=== PATIENT | male | born 1965 | race Caucasian/White ===

== ENCOUNTER 2017-09-05 22:39 | Emergency (ER) | payer OTHER ==
[2017-09-06 00:03] VITALS: BP 148/83
== END 2017-09-06 00:03 | disposition home or self-care (01) ==
LOC: ED 22:39
DX: F10.129 Alcohol abuse with intoxication, unspecified (principal); E11.65 Type 2 diabetes mellitus with hyperglycemia; I10 Essential (primary) hypertension

== ENCOUNTER 2018-04-11 14:58 | Inpatient (IN) | payer OTHER ==
[~2018-04-11] VITALS: Ht 172.7 cm; Wt 69.0 kg
[2018-04-11 16:28] LABS: BASOPHIL % 1.1 % (0-2)
[2018-04-11 16:30] LABS: PLATELET COUNT 416 x10^3mcL (130-400); RED CELL DISTRIBUTION WIDTH 20.1 % (11.5-14.5)
[2018-04-11 16:33] LABS: CALCIUM 7.7 mg/dL (8.5-10.1); CHLORIDE SERUM 103 mmol/L (98-107); CREATININE SERUM 0.7 mg/dL (0.7-1.3); GFR1 > 60 mL/min; GLUCOSE SERUM 150 mg/dL (74-106); POTASSIUM SERUM 3.7 mmol/L (3.5-5.1); SODIUM SERUM 139 mmol/L (136-145)
[2018-04-11 16:37] LABS: ALKALINE PHOSPHATASE 158 U/L (46-116); ALT/SGPT 17 U/L (16-63); AST/SGOT 57 U/L (15-37); BILIRUBIN TOTAL 1.6 mg/dL (0.20-1.00); LIPASE 95 IU/L (73-393); TOTAL PROTEIN, SERUM 6.9 g/dL (6.4-8.2)
[2018-04-11 16:40] LABS: ALBUMIN 1.8 g/dL (3.4-5.0)
[2018-04-11 16:56] LABS: UA SPECIFIC GRAVITY >=1.030 (1.005-1.035); microscopic required? YES; urine erythrocyte NEGATIVE (NEGATIVE)
[2018-04-11] MEDS ORDERED: FUROSEMIDE20 MG PO (17:33)
[2018-04-11 19:24] VITALS: BP 133/89
[2018-04-11 20:03] LABS: T3 TOTAL 0.75 ng/mL
[2018-04-11 20:05] LABS: FREE T4 1.51 ng/dL (0.76-1.46); FREE THYROXINE INDEX 2.6 ug/dL (1.4-4.5)
[2018-04-11 20:16] LABS: AMPHETAMINE QUAL UR NONE DETECTED (See below)
[2018-04-11 20:52] LABS: CHOLESTEROL/HDL RATIO 8.9; MAGNESIUM 1.5 mg/dL (1.8-2.4); PHOSPHOROUS 3.9 mg/dL (2.5-4.9)
[2018-04-12] VITALS (11 sets, daily range): BP systolic 109–141; BP diastolic 69–92
[2018-04-12 07:31] LABS: BASOPHIL % 0.7 % (0-2); PLATELET COUNT 361 x10^3mcL (130-400)
[2018-04-12 07:32] LABS: RED CELL DISTRIBUTION WIDTH 20.4 % (11.5-14.5)
[2018-04-12 07:33] LABS: rbc morphology (normal/abnorm) ABNORMAL (NORMAL)
[2018-04-12 07:47] LABS: CALCIUM 8.1 mg/dL (8.5-10.1); CARBON DIOXIDE 31.2 mmol/L (21-32); CHLORIDE SERUM 102 mmol/L (98-107); CREATININE SERUM 0.7 mg/dL (0.7-1.3); GFR1 > 60 mL/min; GLUCOSE SERUM 182 mg/dL (74-106); MAGNESIUM 1.9 mg/dL (1.8-2.4); PHOSPHOROUS 4.4 mg/dL (2.5-4.9); POTASSIUM SERUM 3.4 mmol/L (3.5-5.1); SODIUM SERUM 141 mmol/L (136-145)
[2018-04-12 16:58] LABS: APPEARANCE FLUID CLOUDY; COLOR FLUID RED; SOURCE FLUID ASCITES
[2018-04-12 17:34] LABS: LYMPHOCYTE FLUID 60 %; MONOCYTE FLUID 10 %; RBC FLUID 5395.6 /cumm; WBC FLUID 20 /cumm
[2018-04-13 05:38] VITALS: BP 128/79
[2018-04-13 06:31] LABS: BASOPHIL % 0.7 % (0-2); PLATELET COUNT 258 x10^3mcL (130-400)
[2018-04-13 06:42] LABS: CARBON DIOXIDE 30.5 mmol/L (21-32); CHLORIDE SERUM 104 mmol/L (98-107); CREATININE SERUM 0.8 mg/dL (0.7-1.3); GFR1 > 60 mL/min; GLUCOSE SERUM 154 mg/dL (74-106); POTASSIUM SERUM 3.2 mmol/L (3.5-5.1); SODIUM SERUM 141 mmol/L (136-145)
[2018-04-13 07:21] LABS: RED CELL DISTRIBUTION WIDTH 20.3 % (11.5-14.5)
[2018-04-13 08:45] VITALS: BP 103/67
[2018-04-13 12:44] VITALS: BP 123/79
[2018-04-13 16:28] VITALS: BP 110/74
[2018-04-13 20:38] VITALS: BP 99/66
[2018-04-13 21:45] VITALS: BP 107/68
[2018-04-14 05:45] VITALS: BP 111/72
[2018-04-14 08:50] VITALS: BP 119/76
[2018-04-14 11:47] LABS: BASOPHIL % 0.5 % (0-2); PLATELET COUNT 277 x10^3mcL (130-400); RED CELL DISTRIBUTION WIDTH 20.4 % (11.5-14.5)
[2018-04-14 12:16] VITALS: BP 129/85
[2018-04-14 12:33] LABS: CALCIUM 7.8 mg/dL (8.5-10.1); CARBON DIOXIDE 31.4 mmol/L (21-32); CHLORIDE SERUM 104 mmol/L (98-107); CREATININE SERUM 0.7 mg/dL (0.7-1.3); GFR1 > 60 mL/min; GLUCOSE SERUM 139 mg/dL (74-106); POTASSIUM SERUM 3.9 mmol/L (3.5-5.1); SODIUM SERUM 141 mmol/L (136-145)
[2018-04-14 17:23] VITALS: BP 108/69
[2018-04-14 20:54] VITALS: BP 112/73
[2018-04-15 05:31] VITALS: BP 116/77
[2018-04-15 06:50] LABS: BASOPHIL % 0.9 % (0-2); PLATELET COUNT 225 x10^3mcL (130-400)
[2018-04-15 07:00] LABS: CALCIUM 8.1 mg/dL (8.5-10.1); CARBON DIOXIDE 29.9 mmol/L (21-32); CHLORIDE SERUM 105 mmol/L (98-107); CREATININE SERUM 0.8 mg/dL (0.7-1.3); GFR1 > 60 mL/min; GLUCOSE SERUM 141 mg/dL (74-106); POTASSIUM SERUM 4.1 mmol/L (3.5-5.1); SODIUM SERUM 140 mmol/L (136-145)
[2018-04-15 07:16] LABS: RED CELL DISTRIBUTION WIDTH 20.2 % (11.5-14.5)
[2018-04-15 09:12] VITALS: BP 107/66
[2018-04-15 12:11] VITALS: BP 107/66
[2018-04-15 14:01] VITALS: BP 87/57
[2018-04-15 17:21] VITALS: BP 113/65
[2018-04-15 20:16] VITALS: BP 100/72
[2018-04-16 05:22] VITALS: BP 119/84
[2018-04-16 07:17] LABS: BASOPHIL % 0.8 % (0-2); PLATELET COUNT 276 x10^3mcL (130-400)
[2018-04-16 07:24] LABS: RED CELL DISTRIBUTION WIDTH 20.7 % (11.5-14.5)
[2018-04-16 07:28] LABS: CALCIUM 8.5 mg/dL (8.5-10.1); CARBON DIOXIDE 29.7 mmol/L (21-32); CHLORIDE SERUM 103 mmol/L (98-107); CREATININE SERUM 0.7 mg/dL (0.7-1.3); GFR1 > 60 mL/min; GLUCOSE SERUM 146 mg/dL (74-106); MAGNESIUM 1.4 mg/dL (1.8-2.4); POTASSIUM SERUM 4.5 mmol/L (3.5-5.1); SODIUM SERUM 138 mmol/L (136-145)
[2018-04-16 09:57] VITALS: BP 112/80
[2018-04-16 13:32] VITALS: BP 132/72
[2018-04-16 17:51] VITALS: BP 130/85
[2018-04-16 21:15] VITALS: BP 112/74
[2018-04-17 05:56] VITALS: BP 103/67
[2018-04-17 06:57] LABS: BASOPHIL % 0.6 % (0-2); PLATELET COUNT 265 x10^3mcL (130-400); RED CELL DISTRIBUTION WIDTH 21.1 % (11.5-14.5)
[2018-04-17 06:58] LABS: rbc morphology (normal/abnorm) ABNORMAL (NORMAL)
[2018-04-17 07:16] LABS: CALCIUM 8.3 mg/dL (8.5-10.1); CHLORIDE SERUM 102 mmol/L (98-107); CREATININE SERUM 0.8 mg/dL (0.7-1.3); GFR1 > 60 mL/min; GLUCOSE SERUM 139 mg/dL (74-106); MAGNESIUM 1.7 mg/dL (1.8-2.4); PHOSPHOROUS 4.4 mg/dL (2.5-4.9); POTASSIUM SERUM 4.1 mmol/L (3.5-5.1); SODIUM SERUM 137 mmol/L (136-145)
[2018-04-17 08:17] VITALS: BP 101/59
[2018-04-17 08:35] LABS: RED BLOOD CELLS 3.27 M/mm3 (4.52-5.90)
[2018-04-17 09:01] LABS: IRON 18 ug/dL (65-170)
[2018-04-17 09:02] LABS: TOTAL IRON BINDING CAPACITY 127 ug/dL (250-450)
[2018-04-17 12:35] VITALS: BP 126/75
[2018-04-17 15:59] VITALS: BP 111/68
[2018-04-17 22:04] VITALS: BP 128/87
[2018-04-18 05:35] VITALS: BP 117/70
[2018-04-18 08:00] LABS: BASOPHIL % 1.2 % (0-2); PLATELET COUNT 297 x10^3mcL (130-400)
[2018-04-18 08:04] LABS: RED CELL DISTRIBUTION WIDTH 21.1 % (11.5-14.5)
[2018-04-18 08:32] VITALS: BP 117/70
[2018-04-18 08:44] VITALS: BP 114/78
[2018-04-18 08:52] LABS: CALCIUM 8.2 mg/dL (8.5-10.1); CARBON DIOXIDE 27.3 mmol/L (21-32); CHLORIDE SERUM 101 mmol/L (98-107); CREATININE SERUM 0.8 mg/dL (0.7-1.3); GFR1 > 60 mL/min; GLUCOSE SERUM 132 mg/dL (74-106); MAGNESIUM 1.6 mg/dL (1.8-2.4); PHOSPHOROUS 4.1 mg/dL (2.5-4.9); POTASSIUM SERUM 4.1 mmol/L (3.5-5.1); SODIUM SERUM 135 mmol/L (136-145)
[2018-04-18 12:53] VITALS: BP 129/74
[2018-04-18 17:03] VITALS: BP 110/72
[2018-04-18 20:33] LABS: APPEARANCE FLUID HAZY; SOURCE FLUID PARACENTESIS
[2018-04-18 20:34] LABS: COLOR FLUID YELLOW
[2018-04-18 20:36] LABS: LYMPHOCYTE FLUID 40 %; MONOCYTE FLUID 5 %; RBC FLUID 5133 /cumm; WBC FLUID 325 /cumm
[2018-04-18 21:31] VITALS: BP 112/70
[2018-04-19 05:59] VITALS: BP 108/70
[2018-04-19 07:48] LABS: BASOPHIL % 0.9 % (0-2); PLATELET COUNT 250 x10^3mcL (130-400)
[2018-04-19 07:53] LABS: RED CELL DISTRIBUTION WIDTH 21.6 % (11.5-14.5); rbc morphology (normal/abnorm) ABNORMAL (NORMAL)
[2018-04-19 08:08] LABS: ALKALINE PHOSPHATASE 104 U/L (46-116); ALT/SGPT 8 U/L (16-63); AST/SGOT 41 U/L (15-37); BILIRUBIN DIRECT 1.15 mg/dL (0.0-0.2); BILIRUBIN TOTAL 2.2 mg/dL (0.20-1.00); CALCIUM 7.4 mg/dL (8.5-10.1); CARBON DIOXIDE 27.1 mmol/L (21-32); CHLORIDE SERUM 101 mmol/L (98-107); CREATININE SERUM 0.7 mg/dL (0.7-1.3); GFR1 > 60 mL/min; GLUCOSE SERUM 108 mg/dL (74-106); MAGNESIUM 1.5 mg/dL (1.8-2.4); PHOSPHOROUS 3.4 mg/dL (2.5-4.9); POTASSIUM SERUM 3.8 mmol/L (3.5-5.1); SODIUM SERUM 135 mmol/L (136-145)
[2018-04-19 08:33] LABS: ALBUMIN 1.7 g/dL (3.4-5.0); TOTAL PROTEIN, SERUM 5.5 g/dL (6.4-8.2)
[2018-04-19 11:08] VITALS: BP 122/76
[2018-04-19 15:01] VITALS: BP 118/76
[2018-04-19 18:48] VITALS: BP 116/75
[2018-04-19 21:00] VITALS: BP 108/71
[2018-04-20 05:25] VITALS: BP 106/70
[2018-04-20 07:15] LABS: BASOPHIL % 0.7 % (0-2); PLATELET COUNT 257 x10^3mcL (130-400)
[2018-04-20 07:17] LABS: RED CELL DISTRIBUTION WIDTH 21.7 % (11.5-14.5)
[2018-04-20 07:18] LABS: CALCIUM 8.3 mg/dL (8.5-10.1); CARBON DIOXIDE 29.8 mmol/L (21-32); CHLORIDE SERUM 101 mmol/L (98-107); CREATININE SERUM 0.7 mg/dL (0.7-1.3); GFR1 > 60 mL/min; GLUCOSE SERUM 150 mg/dL (74-106); MAGNESIUM 1.7 mg/dL (1.8-2.4); PHOSPHOROUS 2.7 mg/dL (2.5-4.9); POTASSIUM SERUM 3.8 mmol/L (3.5-5.1); SODIUM SERUM 133 mmol/L (136-145)
[2018-04-20 07:19] LABS: rbc morphology (normal/abnorm) ABNORMAL (NORMAL)
[2018-04-20 08:33] VITALS: BP 123/71
[2018-04-20 11:18] VITALS: Ht 172.7 cm; Wt 69.0 kg
[2018-04-20 13:05] VITALS: BP 129/77
[2018-04-20] MEDS ORDERED: ALD50 PO (13:54)
[2018-04-20] MEDS ORDERED: LASIX40 MG PO (13:57)
[2018-04-20] MEDS ORDERED: METFORMIN HCL500 MG PO (14:00)
[2018-04-20] MEDS ORDERED: LEVOFLOXACIN500 M1 PO (14:06)
[2018-04-20] MEDS ORDERED: LAC PO (14:07)
[2018-04-20] MEDS ORDERED: LEADER ESSENTIA1 TAB PO (14:07)
[2018-04-20] MEDS ORDERED: ACETAMINOPHEN-H1 TA1 PO (14:11)
[2018-04-20] MEDS ORDERED: LAC30L PO (14:12)
[2018-04-20 16:00] VITALS: BP 129/77
== END 2018-04-20 19:19 | disposition home or self-care (01) | DRG 720 ==
LOC: ED 14:58 → DU 17:25
PROVIDERS: Emergency Medicine; Family Medicine; Internal Medicine
PROC: 0W993ZZ Drainage of Right Pleural Cavity, Percutaneous Approach (ICD-10-PCS; principal; 2018-04-12)
PROC: 0W9G3ZZ Drainage of Peritoneal Cavity, Percutaneous Approach (ICD-10-PCS; 2018-04-12)
PROC: 0D568ZZ Destruction of Stomach, Via Natural or Artificial Opening Endoscopic (ICD-10-PCS; 2018-04-13)
PROC: 0W9G3ZZ Drainage of Peritoneal Cavity, Percutaneous Approach (ICD-10-PCS; 2018-04-18)
DX: A41.9 Sepsis, unspecified organism (principal); N17.0 Acute kidney failure with tubular necrosis; J96.01 Acute respiratory failure with hypoxia; E43 Unspecified severe protein-calorie malnutrition; J18.9 Pneumonia, unspecified organism; J90 Pleural effusion, not elsewhere classified; K65.2 Spontaneous bacterial peritonitis; E83.42 Hypomagnesemia; K76.6 Portal hypertension; K70.31 Alcoholic cirrhosis of liver with ascites; K29.71 Gastritis, unspecified, with bleeding; E11.65 Type 2 diabetes mellitus with hyperglycemia; F10.10 Alcohol abuse, uncomplicated; E83.51 Hypocalcemia; I10 Essential (primary) hypertension; E80.6 Other disorders of bilirubin metabolism; R74.0 Nonspecific elevation of levels of transaminase and lactic acid dehydrogenase [LDH]; F12.10 Cannabis abuse, uncomplicated; Z91.14 Patient's other noncompliance with medication regimen; Z68.25 Body mass index [BMI] 25.0-25.9, adult; J98.11 Atelectasis; D64.9 Anemia, unspecified; Y90.9 Presence of alcohol in blood, level not specified; E87.1 Hypo-osmolality and hyponatremia; F17.200 Nicotine dependence, unspecified, uncomplicated
CPT/HCPCS: 32555; 36600; 43235; 49083; 83880; 84439; 97110-GP; 97116-GP; 97530-GP; 97535-GP; C1729; J0171; J0696; J1200; J1610; J1940; J2001; J2250; J2310; J2543; J2765; J3010; J3475; J3490; J7050; J7620; P9047; Q0092; Q9967

== ENCOUNTER 2018-04-27 17:52 | Inpatient (IN) | payer OTHER ==
[~2018-04-27] VITALS: Ht 172.7 cm; Wt 76.5 kg
[~2018-04-27 17:52] MED LIST: ACETAMINOPHEN-H1 TA1 PO; ALD50 PO; FUROSEMIDE20 MG PO; LAC PO; LAC30L PO; LASIX40 MG PO; LEADER ESSENTIA1 TAB PO; LEVOFLOXACIN500 M1 PO; METFORMIN HCL500 MG PO
[2018-04-27] MEDS ORDERED: NORCO1 TA2 PO (20:13)
[2018-04-27 21:12] VITALS: BP 105/47
[2018-04-28] VITALS (13 sets, daily range): BP systolic 92–128; BP diastolic 30–78; Ht 172.7 cm; Wt 76.5 kg
[2018-04-28 00:31] LABS: T3 TOTAL 0.29 ng/mL
[2018-04-28 00:31] LABS: PLATELET COUNT 448 x10^3mcL (130-400); RED CELL DISTRIBUTION WIDTH 23.6 % (11.5-14.5)
[2018-04-28 00:45] LABS: BAND NEUTROPHIL 2 % (0-10); BASOPHIL 0 % (0-2); MONOCYTE 3 % (0-7); SEGMENTED NEUTROPHILS 89 % (37-75)
[2018-04-28 00:46] LABS: ovalocyte/elliptocyte 1+; rbc morphology (normal/abnorm) ABNORMAL (NORMAL)
[2018-04-28 00:47] LABS: FREE T4 1.13 ng/dL (0.76-1.46); FREE THYROXINE INDEX 1.4 ug/dL (1.4-4.5); T4(THYROXINE) 3.5 ug/dL (4.7-13.3)
[2018-04-28 01:00] LABS: MAGNESIUM 2.3 mg/dL (1.8-2.4); PHOSPHOROUS 6.4 mg/dL (2.5-4.9)
[2018-04-28 01:08] LABS: BILIRUBIN TOTAL 2.68 mg/dL (0.20-1.00); CALCIUM 8.5 mg/dL (8.5-10.1); CARBON DIOXIDE 26.3 mmol/L (21-32); TOTAL PROTEIN, SERUM 6.2 g/dL (6.4-8.2)
[2018-04-28 01:09] LABS: CHOLESTEROL/HDL RATIO 7.1
[2018-04-28 01:14] LABS: ALBUMIN 1.5 g/dL (3.4-5.0); CREATININE SERUM 4.4 mg/dL (0.7-1.3); POTASSIUM SERUM 6.2 mmol/L (3.5-5.1)
[2018-04-28 05:06] LABS: PLATELET COUNT 386 x10^3mcL (130-400)
[2018-04-28 05:13] LABS: RED CELL DISTRIBUTION WIDTH 23.1 % (11.5-14.5)
[2018-04-28 05:21] LABS: CALCIUM 8.8 mg/dL (8.5-10.1); CARBON DIOXIDE 26.9 mmol/L (21-32); MAGNESIUM 2.5 mg/dL (1.8-2.4); PHOSPHOROUS 6.7 mg/dL (2.5-4.9)
[2018-04-28 05:28] LABS: CREATININE SERUM 4.5 mg/dL (0.7-1.3); POTASSIUM SERUM 6.7 mmol/L (3.5-5.1)
[2018-04-28 05:55] LABS: BAND NEUTROPHIL 3 % (0-10); BASOPHIL 0 % (0-2); MONOCYTE 7 % (0-7); SEGMENTED NEUTROPHILS 87 % (37-75); rbc morphology (normal/abnorm) ABNORMAL (NORMAL); target cell (codocyte) 2+; tear drop cell (dacryocyte) 1+
[2018-04-28 05:56] LABS: PLATELET MORPHOLOGY LARGE PLATELET SEEN; ovalocyte/elliptocyte 1+
[2018-04-28 19:00] LABS: CALCIUM 7.6 mg/dL (8.5-10.1); CARBON DIOXIDE 22.9 mmol/L (21-32)
[2018-04-28 19:13] LABS: POTASSIUM SERUM 6.2 mmol/L (3.5-5.1)
[2018-04-28 19:14] LABS: CREATININE SERUM 4.8 mg/dL (0.7-1.3)
[2018-04-28 19:46] LABS: APPEARANCE FLUID TURBID; SOURCE FLUID PARACENTESIS
[2018-04-28 19:48] LABS: COLOR FLUID BROWNISH; LYMPHOCYTE FLUID 5 %; RBC FLUID 44.4 /cumm; WBC FLUID 1822.2 /cumm
[2018-04-28 21:03] LABS: UA SPECIFIC GRAVITY >=1.030 (1.005-1.035); microscopic required? YES; urine erythrocyte TRACE (NEGATIVE)
[2018-04-28 21:12] LABS: AMPHETAMINE QUAL UR NONE DETECTED (See below)
[2018-04-29 05:46] VITALS: BP 122/73
[2018-04-29 06:54] LABS: PLATELET COUNT 275 x10^3mcL (130-400)
[2018-04-29 06:56] LABS: BILIRUBIN TOTAL 2.65 mg/dL (0.20-1.00); CALCIUM 7.6 mg/dL (8.5-10.1); CARBON DIOXIDE 23.9 mmol/L (21-32); MAGNESIUM 2.3 mg/dL (1.8-2.4)
[2018-04-29 07:02] LABS: RED CELL DISTRIBUTION WIDTH 23.3 % (11.5-14.5)
[2018-04-29 07:17] LABS: ALBUMIN 1.2 g/dL (3.4-5.0); CREATININE SERUM 4.9 mg/dL (0.7-1.3); POTASSIUM SERUM 6.6 mmol/L (3.5-5.1); TOTAL PROTEIN, SERUM 5.5 g/dL (6.4-8.2)
[2018-04-29 10:38] LABS: BAND NEUTROPHIL 3 % (0-10); BASOPHIL 0 % (0-2); MONOCYTE 8 % (0-7); SEGMENTED NEUTROPHILS 84 % (37-75); rbc morphology (normal/abnorm) ABNORMAL (NORMAL)
[2018-04-29 10:39] LABS: ovalocyte/elliptocyte 1+; target cell (codocyte) 1+; tear drop cell (dacryocyte) 1+
[2018-04-29 13:44] VITALS: BP 125/58
[2018-04-29 16:38] VITALS: BP 101/61
[2018-04-29 17:35] VITALS: BP 100/50
[2018-04-29 22:12] VITALS: BP 104/63
[2018-04-30] VITALS (7 sets, daily range): BP systolic 89–101; BP diastolic 45–66
[2018-04-30 06:28] LABS: PLATELET COUNT 224 x10^3mcL (130-400)
[2018-04-30 06:37] LABS: CALCIUM 6.8 mg/dL (8.5-10.1); CARBON DIOXIDE 24.3 mmol/L (21-32)
[2018-04-30 06:41] LABS: CREATININE SERUM 4.6 mg/dL (0.7-1.3); POTASSIUM SERUM 6.2 mmol/L (3.5-5.1)
[2018-04-30 07:13] LABS: RED CELL DISTRIBUTION WIDTH 23.3 % (11.5-14.5)
[2018-04-30 09:04] LABS: BAND NEUTROPHIL 0 % (0-10); BASOPHIL 0 % (0-2); MONOCYTE 2 % (0-7); SEGMENTED NEUTROPHILS 94 % (37-75); rbc morphology (normal/abnorm) ABNORMAL (NORMAL)
[2018-04-30 09:05] LABS: PLATELET MORPHOLOGY PLATELETS NORMAL
[2018-04-30 13:36] LABS: CALCIUM 6.9 mg/dL (8.5-10.1); CARBON DIOXIDE 27.5 mmol/L (21-32); CREATININE SERUM 2.5 mg/dL (0.7-1.3)
[2018-04-30 13:41] LABS: PLATELET COUNT 193 x10^3mcL (130-400)
[2018-04-30 13:44] LABS: RED CELL DISTRIBUTION WIDTH 22.9 % (11.5-14.5)
[2018-04-30 14:20] LABS: ATYPICAL LYMPH 25 %; BAND NEUTROPHIL 0 % (0-10); BASOPHIL 0 % (0-2); MONOCYTE 6 % (0-7); SEGMENTED NEUTROPHILS 69 % (37-75)
[2018-04-30 14:21] LABS: PLATELET MORPHOLOGY PLATELETS DECREASED; rbc morphology (normal/abnorm) ABNORMAL (NORMAL); target cell (codocyte) 1+
[2018-05-01 05:03] VITALS: BP 90/60
[2018-05-01 06:27] LABS: CALCIUM 6.7 mg/dL (8.5-10.1); CARBON DIOXIDE 24.8 mmol/L (21-32); POTASSIUM SERUM 3.9 mmol/L (3.5-5.1)
[2018-05-01 06:52] LABS: PLATELET COUNT 141 x10^3mcL (130-400)
[2018-05-01 06:58] LABS: RED CELL DISTRIBUTION WIDTH 21.1 % (11.5-14.5)
[2018-05-01 07:12] LABS: BAND NEUTROPHIL 2 % (0-10); BASOPHIL 0 % (0-2); MONOCYTE 7 % (0-7); SEGMENTED NEUTROPHILS 84 % (37-75); rbc morphology (normal/abnorm) ABNORMAL (NORMAL)
[2018-05-01 07:13] LABS: ovalocyte/elliptocyte 1+; target cell (codocyte) 1+; tear drop cell (dacryocyte) 1+
[2018-05-01 09:14] VITALS: BP 89/54
[2018-05-01 11:53] VITALS: BP 90/60
[2018-05-01 17:40] VITALS: BP 102/65
[2018-05-01 20:57] VITALS: BP 135/80
[2018-05-02] VITALS (9 sets, daily range): BP systolic 75–135; BP diastolic 39–80
[2018-05-02 06:39] LABS: PLATELET COUNT 86 x10^3mcL (130-400); RED CELL DISTRIBUTION WIDTH 21.4 % (11.5-14.5)
[2018-05-02 06:42] LABS: CALCIUM 6.8 mg/dL (8.5-10.1); CARBON DIOXIDE 23.5 mmol/L (21-32); CREATININE SERUM 3.1 mg/dL (0.7-1.3); POTASSIUM SERUM 4.4 mmol/L (3.5-5.1)
[2018-05-02 07:55] LABS: BAND NEUTROPHIL 2 % (0-10); MONOCYTE 4 % (0-7); SEGMENTED NEUTROPHILS 87 % (37-75); rbc morphology (normal/abnorm) ABNORMAL (NORMAL)
[2018-05-02 07:56] LABS: target cell (codocyte) 1+
[2018-05-02 15:32] LABS: CALCIUM 7.3 mg/dL (8.5-10.1); CARBON DIOXIDE 22.4 mmol/L (21-32); CREATININE SERUM 3.4 mg/dL (0.7-1.3); POTASSIUM SERUM 4.5 mmol/L (3.5-5.1)
[2018-05-02 15:39] LABS: PLATELET COUNT 88 x10^3mcL (130-400); RED CELL DISTRIBUTION WIDTH 21.2 % (11.5-14.5)
[2018-05-02 16:34] LABS: BAND NEUTROPHIL 1 % (0-10); METAMYELOCTE 1 % (0-2); MONOCYTE 4 % (0-7); SEGMENTED NEUTROPHILS 90 % (37-75); rbc morphology (normal/abnorm) ABNORMAL (NORMAL); target cell (codocyte) 1+
[2018-05-03 00:46] VITALS: BP 94/46
[2018-05-03 03:06] LABS: PLATELET COUNT 80 x10^3mcL (130-400); RED CELL DISTRIBUTION WIDTH 20.2 % (11.5-14.5)
[2018-05-03 03:09] LABS: CALCIUM 7.4 mg/dL (8.5-10.1); CARBON DIOXIDE 20.8 mmol/L (21-32); CREATININE SERUM 3.6 mg/dL (0.7-1.3); MAGNESIUM 1.7 mg/dL (1.8-2.4); PHOSPHOROUS 5.9 mg/dL (2.5-4.9); POTASSIUM SERUM 4.2 mmol/L (3.5-5.1)
[2018-05-03 03:11] LABS: ALBUMIN 1.1 g/dL (3.4-5.0)
[2018-05-03 03:20] VITALS: BP 108/59
[2018-05-03 04:17] LABS: BAND NEUTROPHIL 1 % (0-10); METAMYELOCTE 1 % (0-2); MONOCYTE 4 % (0-7); SEGMENTED NEUTROPHILS 88 % (37-75)
[2018-05-03 04:19] LABS: acanthocyte (spur cell) 1+; rbc morphology (normal/abnorm) ABNORMAL (NORMAL)
[2018-05-03 04:20] LABS: target cell (codocyte) 1+
[2018-05-03 07:41] LABS: UA SPECIFIC GRAVITY 1.025 (1.005-1.035); microscopic required? YES; urine erythrocyte 2+ (NEGATIVE)
[2018-05-03 07:55] VITALS: BP 99/57
[2018-05-03 11:31] VITALS: BP 95/59
[2018-05-03 14:37] VITALS: BP 86/55
== END 2018-05-03 16:30 | disposition short-term general hospital (02) | DRG 720 ==
LOC: ED 17:52 → MU 19:47 → DU 19:47 → IC 19:47 → DU 19:47 → IC 21:06 → DU 21:06 → IC 04-28 01:00 → DU 04-28 12:46 → IC 05-02 15:05
PROVIDERS: Family Medicine; Internal Medicine; Internal Medicine Infectious Disease; Specialist
PROC: 0JH63XZ Insertion of Tunneled Vascular Access Device into Chest Subcutaneous Tissue and Fascia, Percutaneous Approach (ICD-10-PCS; 2018-04-27)
PROC: 02HV33Z Insertion of Infusion Device into Superior Vena Cava, Percutaneous Approach (ICD-10-PCS; 2018-04-27)
PROC: B5181ZA Fluoroscopy of Superior Vena Cava using Low Osmolar Contrast, Guidance (ICD-10-PCS; 2018-04-27)
PROC: 05PYX3Z Removal of Infusion Device from Upper Vein, External Approach (ICD-10-PCS; 2018-04-27)
PROC: 0W9G3ZZ Drainage of Peritoneal Cavity, Percutaneous Approach (ICD-10-PCS; principal; 2018-04-28)
PROC: 02HV33Z Insertion of Infusion Device into Superior Vena Cava, Percutaneous Approach (ICD-10-PCS; 2018-04-29)
PROC: B548ZZA Ultrasonography of Superior Vena Cava, Guidance (ICD-10-PCS; 2018-04-29)
PROC: 5A1D70Z Performance of Urinary Filtration, Intermittent, Less than 6 Hours Per Day (ICD-10-PCS; 2018-04-29)
PROC: 30233N1 Transfusion of Nonautologous Red Blood Cells into Peripheral Vein, Percutaneous Approach (ICD-10-PCS; 2018-04-30)
PROC: 5A1D70Z Performance of Urinary Filtration, Intermittent, Less than 6 Hours Per Day (ICD-10-PCS; 2018-04-30)
PROC: 5A1D70Z Performance of Urinary Filtration, Intermittent, Less than 6 Hours Per Day (ICD-10-PCS; 2018-05-01)
PROC: 02HV33Z Insertion of Infusion Device into Superior Vena Cava, Percutaneous Approach (ICD-10-PCS; 2018-05-02)
PROC: B548ZZA Ultrasonography of Superior Vena Cava, Guidance (ICD-10-PCS; 2018-05-02)
PROC: 02HV33Z Insertion of Infusion Device into Superior Vena Cava, Percutaneous Approach (ICD-10-PCS; 2018-05-03)
PROC: B548ZZA Ultrasonography of Superior Vena Cava, Guidance (ICD-10-PCS; 2018-05-03)
DX: A41.9 Sepsis, unspecified organism (principal); J96.00 Acute respiratory failure, unspecified whether with hypoxia or hypercapnia; E43 Unspecified severe protein-calorie malnutrition; K76.7 Hepatorenal syndrome; N17.0 Acute kidney failure with tubular necrosis; R65.21 Severe sepsis with septic shock; K65.2 Spontaneous bacterial peritonitis; Z99.81 Dependence on supplemental oxygen; K70.31 Alcoholic cirrhosis of liver with ascites; K76.81 Hepatopulmonary syndrome; F10.10 Alcohol abuse, uncomplicated; E87.1 Hypo-osmolality and hyponatremia; E11.65 Type 2 diabetes mellitus with hyperglycemia; E87.5 Hyperkalemia; E83.39 Other disorders of phosphorus metabolism; Z68.25 Body mass index [BMI] 25.0-25.9, adult; F17.210 Nicotine dependence, cigarettes, uncomplicated; Z91.19 Patient's noncompliance with other medical treatment and regimen; Z88.2 Allergy status to sulfonamides; I12.9 Hypertensive chronic kidney disease with stage 1 through stage 4 chronic kidney disease, or unspecified chronic kidney disease; E11.22 Type 2 diabetes mellitus with diabetic chronic kidney disease; N18.9 Chronic kidney disease, unspecified
CPT/HCPCS: 36556; 36600; 49083; 84439; 86580; 87106; A4301; C1729; G0378; J0690; J0696; J1200; J1642; J1644; J2001; J2060; J2248; J2543; J2704; J3010; J3370; J3475; J3490; J7030; J7040; J7050; J7620; P9016; P9047; Q0092; Q0163